=== PATIENT | male | born 1985 | race Caucasian/White ===

== ENCOUNTER 2019-01-09 03:08 | Emergency (ER) | payer OTHER ==
[~2019-01-09] VITALS: Ht 175.3 cm; Wt 120.2 kg
[~2019-01-09 03:08] MED LIST: BACTROBAN22 GM TOP; CLINDAMYCIN HC300 MG PO; KEFLEX500 MG PO; NORCO 10-325 T1 EACH PO; NORCO 5-325 TA1 EACH PO; PRILOSEC20 MG PO
== END 2019-01-09 04:00 | disposition home or self-care (01) ==
LOC: ED 03:08
PROC: 08C9XZZ Extirpation of Matter from Left Cornea, External Approach (ICD-10-PCS; principal; 2019-01-09)
DX: T15.02XA Foreign body in cornea, left eye, initial encounter (principal); Z88.0 Allergy status to penicillin; Z88.1 Allergy status to other antibiotic agents
CPT/HCPCS: 65220; 99283-25

== ENCOUNTER 2023-12-28 23:11 | Emergency (ER) | payer OTHER ==
[~2023-12-28] VITALS: Ht 175.3 cm; Wt 117.0 kg
[2023-12-28] MEDS ORDERED: ondansetron HCL 4 MG/2 ML VIAL IV ONE (23:30)
[2023-12-28] MEDS ORDERED: MORPHINE SULFATE 4 MG/ML VIAL IV ONE (23:30)
[2023-12-28] MEDS ORDERED: SODIUM CHLORIDE 0.9% 1,000 ML IV ONE (23:30)
[2023-12-28 23:34] LABS: BASOPHILS 0.7 % (0-2); EOSINOPHILS 1.8 % (0-6); HEMATOCRIT 39.1 % (35.0-50.0); HEMOGLOBIN 13.5 g/dL (12.0-18.0); LYMPHOCYTES 37.6 % (24-44); MCH 28.6 (27-36); MCHC 34.5 g/dl (30-36); MCV 82.8 fl (81-99); MONOCYTES 8.3 % (0-12); NEUTROPHILS 51.6 % (39-80); PLATELET COUNT 292 K/uL (140-440); RBC 4.72 M/ul (4.3-5.7); RDW 13.7 (10.5-15.0)
[2023-12-28 23:50] LABS: ALBUMIN 4.1 g/dL (3.4-5.0); ALBUMIN/GLOBULIN RATIO 1.32 (1.1-2.4); ANION GAP 13.6 (7-21); BILIRUBIN, TOTAL 0.3 ng/dL (0.2-1.0); BUN/CREATININE RATIO 12.97 (6.0-28.6); CALCIUM 9.4 mg/dL (8.5-10.1); CREATININE, SERUM 1.31 mg/dL (0.70-1.30); POTASSIUM 3.6 mmol/L (3.5-5.1); PROTEIN, TOTAL 7.2 g/dL (6.4-8.2)
[2023-12-29 00:21] LABS: INFLUENZA B NAA NEGATIVE (NEGATIVE); RESPIRATORY SYNCYTIAL VIR NAA NEGATIVE (NEGATIVE)
[2023-12-29] MEDS ORDERED: HYDROmorphone HCL 1 MG/ML SYR IV ONE (00:30)
[2023-12-29] MEDS ORDERED: CIPROFLOXACIN 500 MG TAB PO ONE (01:15)
[2023-12-29] MEDS ORDERED: OXYCODONE/ACETAMINOPHEN 1 TAB HOME.PACK PO ONE (01:15)
[2023-12-29] MEDS ORDERED: ONDANSETRON 4 MG HOME.PACK SL ONE (01:15)
[2023-12-29] MEDS ORDERED: TAMSULOSIN HCL 0.4 MG CAP PO ONE (01:15)
[2023-12-29 01:27] VITALS: BP 150/87
== END 2023-12-29 01:27 | disposition home or self-care (01) ==
LOC: ED 23:11
PROVIDERS: Family Medicine
DX: N13.2 Hydronephrosis with renal and ureteral calculous obstruction (principal); Z88.1 Allergy status to other antibiotic agents; Z88.0 Allergy status to penicillin
CPT/HCPCS: 36415; 74177; 80053; 83690; 85025; 87502; 96361; 96375; 99284-25; A9270; J2270; J2405; J7030; Q9967; U0002

== ENCOUNTER 2023-12-31 08:25 | Day surgery (SDC) | payer OTHER ==
[~2023-12-31] VITALS: Ht 175.3 cm; Wt 115.7 kg
[~2023-12-31 08:25] MED LIST changes: -BACTROBAN22 GM TOP; +CEFAZOLIN SODIUM 2 GM/20 ML SYR IV SCH; -CLINDAMYCIN HC300 MG PO; +IBLOOD GLUCOSE TEST STRIP 1 EA TEST VI PRN; -KEFLEX500 MG PO; +LACTATED RINGER'S 1,000 ML IV SCH; +LIDOCAINE HCL 1% 5 ML SDV INJ ONE; -NORCO 10-325 T1 EACH PO; -NORCO 5-325 TA1 EACH PO; -PRILOSEC20 MG PO
--- NOTE | 2023-12-31 08:35 | NUR ---
PT REPORTS INABILITY TO VOID FOR UA AT THIS TIME. DR. ECHEVARRIA INFORMED. VERBAL ORDER RECEIVED TO DC UA ORDER.
[2023-12-31] MEDS ORDERED: METOCLOPRAMIDE HCL 10 MG/2 ML SDV ONE (09:05)
[2023-12-31] MEDS ORDERED: DEXAMETHASONE SOD PHOS 4 MG/ML VIAL ONE (09:05)
[2023-12-31] MEDS ORDERED: LACTATED RINGER'S 1,000 ML IV ONE (09:05)
[2023-12-31] MEDS ORDERED: fentaNYL citrate 100 MCG/2 ML VIAL ONE (09:05)
[2023-12-31] MEDS ORDERED: FAMOTIDINE 20 MG/ 2 ML VIAL ONE (09:05)
[2023-12-31] MEDS ORDERED: propofoL 200 MG/20 ML VIAL ONE (09:05)
[2023-12-31] MEDS ORDERED: MIDAZOLAM HCL 2 MG/2 ML VIAL ONE (09:05)
[2023-12-31] MEDS ORDERED: ondansetron HCL 4 MG/2 ML VIAL ONE (09:05)
[2023-12-31] MEDS ORDERED: KETOROLAC TROMETHAMINE 30 MG/ML VIAL ONE (09:05)
[2023-12-31] MEDS ORDERED: iopamidoL 30 ML VIAL ONE (09:51)
[2023-12-31] MEDS ORDERED: ATROPINE SULFATE 1 MG/ML VIAL ONE (10:35)
[2023-12-31] MEDS ORDERED: fentaNYL citrate 50 MCG/ML SDV IV PRN (11:00)
[2023-12-31] MEDS ORDERED: NALOXONE HCL 0.4 MG SYR IV PRN (11:00)
[2023-12-31] MEDS ORDERED: droPERidol 5 MG/2 ML VIAL IV PRN (11:00)
[2023-12-31] MEDS ORDERED: METOCLOPRAMIDE HCL 10 MG/2 ML SDV IV PRN (11:00)
[2023-12-31] MEDS ORDERED: ondansetron HCL 4 MG/2 ML VIAL IV PRN ×2 (11:00→12:15)
[2023-12-31] MEDS ORDERED: IBLOOD GLUCOSE TEST STRIP 1 EA TEST VI PRN (11:00)
[2023-12-31] MEDS ORDERED: PROCHLORPERAZINE EDISYLATE 10 MG/2 ML VIAL IV PRN (11:00)
[2023-12-31] MEDS ORDERED: MORPHINE SULFATE 10 MG/ML VIAL IV PRN (11:00)
--- NOTE | 2023-12-31 12:06 | NUR ---
12/31/23 1206 Sheets,[place] 1159 PT ARRIVED TO PACU TO 10L VIA MASK AND ORAL AIRWAY IN PLACE. RESP EVEN AND UNLABORED, PT SITTING IN HIGH FOWLERS.
[2023-12-31] MEDS ORDERED: HYDROmorphone HCL 1 MG/ML SYR IV PRN (12:15)
[2023-12-31] MEDS ORDERED: OXYCODONE/APAP 5/325 TAB PO PRN (12:15)
[2023-12-31] MEDS ORDERED: KETOROLAC TROMETHAMINE 15 MG/ML VIAL IV PRN (12:15)
[2023-12-31] MEDS ORDERED: PHENAZOPYRIDINE HCL 95 MG TAB PO PRN (12:15)
--- NOTE | 2023-12-31 13:00 | NUR ---
ZEN 1235-PT RETURNED TO DS VIA STRETCHER. REPORT RECEIVED FROM CASH CROP FARMER. PT REPORTS PAIN IN BLADDER/URETHRA AREA TO BE 4/10, WHICH HE FEELS IS TOLERABLE FOR HIM AT THIS TIME. PT IS AAOX3 AND IS ABLE TO ANSWER QUESTIONS APPROPRIATELY AND MAKE HIS NEEDS KNOWN. PT DENIES NAUSEA WHEN ASKED. VISUALIZED URETHRAL OPENING WITH CASH CROP FARMER. NOTED SMALL AMT OF SANGUINEOUS DRAIANGE FROM URETHRA. OBSERVED URETHRAL STENT STRING IN PLACE AND TAPED TO HEAD OF PENIS. IV SITE ASSESSED AND NOTED TO BE PATENT WITH LR INFUSING PER ORDERS. PT WITH ICE WATER UPON RETURN FROM PACU. PT APPEARS TO BE TOLERATING PO FLUIDS WELL AND W/O ISSUES. PT REPORTS URGE TO VOID WHILE THIS RN IN ROOM FOR ROUTINE ASSESSMENT. PT GIVEN PO PYRIDIUM PER ORDERS PRIOR TO GOING TO RESTROOM. 1245-PT ASSISTED TO SITTING ON EOB AND THEN TO STANDING POSITION WITH 2 RN ASSIST FOR SAFETY. PT AMBULATED TO RESTROOM AND WAS ABLE TO VOID 100ML OF CLR, RED URINE. NO VISIBLE CLOTS SEEN. PT AMBUALTED BACK TO ROOM WITH 1 RN SBA FOR SAFETY. PT PROVIDED WITH NEW GOWN, D/T SOME BLOOD NOTED ON FRONT FROM URETHRAL DRAINAGE. PT ASSISTED IN REPLACING GOWN. PT PROVIDED WITH FRESH WATER, HALLE CRACKERS, AND PUDDING. PT DENIES ANY FURTHER NEEDS AT THIS TIME AND ALL QUESTIONS ANSWERED. CALL LIGHT WITHIN PT REACH. BED IN LOW POSITION WITH WHEELS LOCKED. BILAT SIDE RAILS IN PALCE FOR PT SAFETY.
--- NOTE | 2023-12-31 13:05 | NUR ---
PT WITH REPORTS OF INCREASED PAIN AFTER FIRT VOID. PT RATING PAIN AT 6-7/10. PT HAS TOLERATED PO FLUIDS AND FOOD W/O ISSUES. PO PAIN MEDS GIVEN PER ORDERS.
[2023-12-31 13:35] VITALS: BP 148/81
--- NOTE | 2023-12-31 15:09 | NUR ---
LE- 1335-INTO PTS ROOM FOR ROUTINE REASSESSMENT. VS TAKEN. IV SITE ASSESSED. BLEEDING FROM URETHRA HAS SLOWED WITH ONLY SMALL DROPS OCCASIOANLLY. STENT STRING APPEARS TO REMAIN TAPED SECURELY IN PALCE TO HEAD OF PENIS. PT REPORTS PAIN IMPROVED TO 2-3/10 WITH PO PAIN MEDS. PT CONT TO DENY ANY NAUSEA. 1345-DISCHARGE INSTRUCTIONS REVIEWED WITH PT. PT VERBALIZED UNDERSTANDING AND DENIES ANY FURTHER QUESTIONS. RX'S GIVEN TO PT ALSO. PT SITTING UP ON EOB WITH BAG OF PERSONAL BELONGINGS WITH REACH WELL CALL LIGHT. PT LEFT TO DRESS FOR DISCHARGE HOME. PT NOTIFIED HIS RIDE VIA PHONE TO COME GET HIM. PT PROVIDED WITH SMALL STACK OF GAUZE TO PLACE IN HIS UNDERWEAR TO ABSORB SMALL AMT OF BLEEDING FROM URETHRAL OPENING AT HIS REQUEST. 1355-PT FINSIHED DRESSING AND IV REMOVED FROM R HAND. TIP OBSERVED TO BE INTACT, PRESSURE DRSG APPLIED WITH GAUZE AND COBAN. 1400-PT TRANSFERRED OFF UNIT VIA WC TO PASSENGER SIDE OF FRIENDS VEHICLE. PT DENIES ANY FURTHER NEEDS OR QUESTIONS AT THIS TIME. ALL PERSONAL BELONGINGS TAKEN WITH PT.
[2024-01-03 11:57] LABS: CALCULI MASS 10 mg (())
== END 2023-12-31 14:00 | disposition home or self-care (01) ==
LOC: DS 08:25
PROVIDERS: ATTEND Urology
PROC: 0TC68ZZ Extirpation of Matter from Right Ureter, Via Natural or Artificial Opening Endoscopic (ICD-10-PCS; principal; 2023-12-31)
PROC: 0T768DZ Dilation of Right Ureter with Intraluminal Device, Via Natural or Artificial Opening Endoscopic (ICD-10-PCS; 2023-12-31)
DX: N13.2 Hydronephrosis with renal and ureteral calculous obstruction (principal); Z88.0 Allergy status to penicillin; Z88.1 Allergy status to other antibiotic agents
CPT/HCPCS: 00910; 74420; 74450; 82365; C1769; C2617; J0461; J0690; J1100; J1885; J2250; J2405; J2704; J2765; J3010; J7121; Q9958

== ENCOUNTER 2024-01-01 16:14 | Emergency (ER) | payer OTHER ==
[~2024-01-01] VITALS: Ht 175.3 cm; Wt 99.0 kg
[~2024-01-01 16:14] MED LIST changes: +BACTROBAN22 GM TOP; -CEFAZOLIN SODIUM 2 GM/20 ML SYR IV SCH; +CIPRO500 MG PO; +CLINDAMYCIN HC300 MG PO; +FLOMAX0.4 MG PO; -IBLOOD GLUCOSE TEST STRIP 1 EA TEST VI PRN; +KEFLEX500 MG PO; -LACTATED RINGER'S 1,000 ML IV SCH; -LIDOCAINE HCL 1% 5 ML SDV INJ ONE; +NORCO 10-325 T1 EACH PO; +NORCO 5-325 TA1 EACH PO; +ONDANSETRON ODT8 MG PO; +PERCOCET 5-3251 EACH PO; +PRILOSEC20 MG PO
--- OUTSIDE RECORDS SUMMARY | 2024-01-01 16:15 | XMS ---
PreManage Notification: CONNIE LION Security Nurses Educator Events No recent Security Events currently on file CRITERIA MET - [facility] - 2 Visits in 30 Days CARE PROVIDERS There are no care providers on record at this time. Glo has no Care Guidelines for this patient. [facility] MO[facility] NOTE: Visits indicate total known visits. ED/C VISIT TRACKING (12 MO.) [facility]2024 16:[facility] COMPLAINT: - STOMACH PAIN 12/28/2023 23:12 [facility] [place] TYPE: Emergency COMPLAINT: - ABDOMINAL PAIN DIAGNOSES: - Allergy status to other antibiotic agents - Allergy status to penicillin - Hydronephrosis with renal and ureteral calculous obstruction - Right lower quadrant pain 08/26/2023 18:29 [facility] [place] TYPE: Emergency COMPLAINT: - MOUTH PAIN DIAGNOSES: - Acute pharyngitis, unspecified - Allergy status to other antibiotic agents - Allergy status to penicillin INPATIENT VISIT TRACKING (12 MO.) No inpatient visits to display in this time frame [email or web address]
[2024-01-01] MEDS ORDERED: TAMSULOSIN HCL0.4 MG PO (17:28)
[2024-01-01] MEDS ORDERED: PHENAZOPYRIDIN200 MG PO (17:28)
[2024-01-01] MEDS ORDERED: KETOROLAC TROMETHAMINE 30 MG/ML VIAL IV ONE (17:45)
[2024-01-01] MEDS ORDERED: ondansetron HCL 4 MG/2 ML VIAL IV ONE (17:45)
[2024-01-01] MEDS ORDERED: SODIUM CHLORIDE 0.9% 1,000 ML IV ONE (17:45)
[2024-01-01 17:50] LABS: BASOPHILS 0.5 % (0-2); EOSINOPHILS 1.1 % (0-6); HEMATOCRIT 38.6 % (35.0-50.0); HEMOGLOBIN 13.3 g/dL (12.0-18.0); LYMPHOCYTES 24.8 % (24-44); MCH 28.5 (27-36); MCHC 34.4 g/dl (30-36); MCV 82.9 fl (81-99); MONOCYTES 7.1 % (0-12); NEUTROPHILS 66.5 % (39-80); PLATELET COUNT 282 K/uL (140-440); RBC 4.65 M/ul (4.3-5.7)
[2024-01-01 18:05] LABS: ALBUMIN 3.8 g/dL (3.4-5.0); ALBUMIN/GLOBULIN RATIO 1.23 (1.1-2.4); ANION GAP 12.5 (7-21); BILIRUBIN, TOTAL 0.3 ng/dL (0.2-1.0); BUN/CREATININE RATIO 8.59 (6.0-28.6); CALCIUM 8.6 mg/dL (8.5-10.1); CREATININE, SERUM 1.28 mg/dL (0.70-1.30); POTASSIUM 3.5 mmol/L (3.5-5.1); PROTEIN, TOTAL 6.9 g/dL (6.4-8.2)
[2024-01-01 19:07] LABS: BILIRUBIN, URINE POSITIVE (negative); BLOOD/HGB, URINE LARGE (Negative); KETONE, URINE TRACE (Negative); LEUK ESTERASE, URINE SMALL (negative); NITRITE, URINE POSITIVE (negative)
[2024-01-01 19:16] LABS: CRYSTALS, URINE NONE SEEN (0-1+); EPITHELIAL CELLS, URINE NS /lpf (0-1+)
[2024-01-01 19:17] LABS: BACTERIA, URINE RARE /hpf (negative); CASTS, URINE NEGATIVE \\lpf; COLLECTION TYPE, URINE CLEAN CATCH; REFLEX CULTURE, URINE Yes (No)
[2024-01-01] MEDS ORDERED: KETOROLAC TROME10 MG PO (19:32)
[2024-01-01 20:02] VITALS: BP 141/85
== END 2024-01-01 20:01 | disposition home or self-care (01) ==
LOC: ED 16:14
PROVIDERS: Emergency Medicine
DX: T83.123A Displacement of other urinary stents, initial encounter (principal); Y73.8 Miscellaneous gastroenterology and urology devices associated with adverse incidents, not elsewhere classified; Z88.1 Allergy status to other antibiotic agents; Z88.0 Allergy status to penicillin; Z79.899 Other long term (current) drug therapy
CPT/HCPCS: 36415; 74176; 80053; 81001; 85025; 87088; 96374; 96375; 99284-25; J1885; J2405; J7030

== ENCOUNTER 2024-06-08 11:39 | Emergency (ER) | payer OTHER ==
[~2024-06-08] VITALS: Ht 175.3 cm; Wt 119.7 kg
[~2024-06-08 11:39] MED LIST changes: +KETOROLAC TROME10 MG PO; +PHENAZOPYRIDIN200 MG PO; +TAMSULOSIN HCL0.4 MG PO
--- OUTSIDE RECORDS SUMMARY | 2024-06-08 11:45 | XMS ---
PreManage Notification: CONNIE LION Security Bakery Associate Events No recent Security Events currently on file CRITERIA MET - [facility] - 2 Visits in 30 Days CARE PROVIDERS There are no care providers on record at this time. Glo has no Care Guidelines for this patient. [facility]12 MO.) [facility] TOTAL 5 NOTE: Visits indicate total known visits. ED/UCC VISIT TRACKING (12 MO.) 06/08/2024 11:39 [facility] [place] TYPE: Emergency COMPLAINT: - WOUND CHECK 06/07/2024 10:10 [facility] [place] TYPE: Emergency DIAGNOSES: - Displaced fracture of distal phalanx of left middle finger, initial encounter for open fracture - Displaced fracture of distal phalanx of left ring finger, initial encounter for open fracture - L FINGER INJJOSUÉ 01/01/2024 16:15 [facility] [place] TYPE: Emergency COMPLAINT: - STOMACH PAIN DIAGNOSES: - Allergy status to other antibiotic agents - Allergy status to penicillin - Displacement of other urinary stents, initial encounter - Miscellaneous gastroenterology and urology devices associated with adverse incidents, not elsewhere classified - Other longterm (current) drug therapy - Right lower quadrant pain 12/28/2023 23:12 [facility] [place] TYPE: [...] visits to display in this time frame [email or web address]
[2024-06-08 14:45] VITALS: BP 136/90
== END 2024-06-08 14:46 | disposition home or self-care (01) ==
LOC: ED 11:39
DX: S62.633A Displaced fracture of distal phalanx of left middle finger, initial encounter for closed fracture (principal); S62.635A Displaced fracture of distal phalanx of left ring finger, initial encounter for closed fracture; Z88.0 Allergy status to penicillin; Z88.1 Allergy status to other antibiotic agents; W20.8XXA Other cause of strike by thrown, projected or falling object, initial encounter
CPT/HCPCS: 29125; 73130; 99283

== ENCOUNTER 2025-03-28 06:33 | Emergency (ER) | payer OTHER ==
[~2025-03-28] VITALS: Ht 175.3 cm; Wt 103.1 kg
[2025-03-28 06:47] LABS: BASOPHILS 0.5 % (0.2-1.2); EOSINOPHILS 1.9 % (0.8-7.0); LYMPHOCYTES 48.0 % (21.8-53.1); MCH 27.7 PG (25.7-32.2); MCHC 34.0 g/dL (32.3-36.5); MCV 81.6 fL (79.0-92.2); MONOCYTES 9.8 % (5.3-12.2); NEUTROPHILS 39.6 % (34.0-67.9); RBC 5.23 M/uL (4.63-6.08)
[2025-03-28 07:09] LABS: AST (SGOT) 87.0 U/L (15-37); GLOMERULAR FILTRATION RATE,EST 103.0 mL/min (>60); PROTEIN, TOTAL 7.1 g/dL (6.4-8.2); UREA NITROGEN 13.0 mg/dL (7-18)
[2025-03-28] MEDS ORDERED: MORPHINE SULFATE 10 MG/ML VIAL ONE (07:16)
[2025-03-28 07:22] LABS: ALT (SGPT) 139.0 U/L (14-59)
[2025-03-28] MEDS ORDERED: HEPARIN SOD,PORK IN 0.45% NACL 500 ML IV SCH (08:15)
[2025-03-28 08:22] LABS: INR 0.95 (0.80-1.30); PROTIME 12.0 Sec (11.2-14.2)
[2025-03-28] MEDS ORDERED: MORPHINE SULFATE 4 MG/ML VIAL IV ONE (08:30)
[2025-03-28 08:40] LABS: CORONAVIRUS COVID-19 AG NEGATIVE (NEGATIVE)
[2025-03-28] MEDS ORDERED: NITROGLYCERIN PACKET TOP ONE (09:00)
[2025-03-28 09:26] VITALS: BP 149/94
--- NOTE | 2025-03-29 17:49 | EKG ---
[facility] [address] [place], [place] [address] Signed Normal sinus rhythm Normal ECG No previous ECGs available Confirmed by Keo Reaves DO ([id number]) on 03/29/2025 5:49:36 PM Electronically Signed By: KEO REAVES DO 03/29/25 1749 PATIENT NAME: CONNIE LION Electrocardiogram DATE OF : 89 PHYSICIAN: KEO REAVES DO REPORT #: [id number] REPORT IS CONFIDENTIAL AND NOT TO BE RELEASED WITHOUT AUTHORIZATION
--- NOTE | 2025-03-29 17:50 | EKG ---
[facility] [address] [facility] [place], [place] [address] Signed Normal sinus rhythm Cannot rule out Anterior infarct , age undetermined Abnormal ECG When compared with ECG of 28-MAR-2025 06:35, (Unconfirmed) No significant change was found Confirmed by Samuel Reaves DO ([id number]) on 03/29/2025 5:49:59 PM Electronically Signed By: SAMUEL REAVES DO 03/29/251749 PATIENT NAME: AMISHACONNIE REID Electrocardiogram DATE OF : 89 PHYSICIAN: SAMUEL REAVES DO REPORT #: [id number] REPORT IS CONFIDENTIAL AND NOT TO BE RELEASED WITHOUT AUTHORIZATION
== END 2025-03-28 09:26 | disposition short-term general hospital (02) ==
LOC: ED 06:33
PROVIDERS: Emergency Medicine
DX: I21.4 Non-ST elevation (NSTEMI) myocardial infarction (principal); Z88.0 Allergy status to penicillin; Z88.1 Allergy status to other antibiotic agents
CPT/HCPCS: 36415; 71045; 71275; 74174; 80053; 83735; 84484; 85025; 85610; 85730; 93005; 93010; 96374; 96375; 96376; 99291; J1644; J2270; J2405; Q9967